=== PATIENT | female | born 2000 | race African-American/Black ===

== ENCOUNTER 2020-03-03 12:10 | Emergency (ER) | payer OTHER ==
[~2020-03-03] VITALS: Ht 170.2 cm; Wt 60.3 kg
[2020-03-03 12:14] VITALS: Ht 170.2 cm; Wt 60.3 kg
[2020-03-03 13:02] LABS: microscopic required? NO
[2020-03-03 13:20] LABS: urine erythrocyte NEGATIVE (NEGATIVE)
[2020-03-03 13:46] VITALS: BP 118/54
== END 2020-03-03 12:14 | disposition home or self-care (01) ==
LOC: ED 12:10
PROVIDERS: Emergency Medicine
DX: N76.0 Acute vaginitis (principal)
CPT/HCPCS: 87491; 87591